=== PATIENT | female | born 1945 | race Caucasian/White ===

== ENCOUNTER 2018-07-31 08:41 | Day surgery (SDC) | payer MEDICARE, OTHER ==
[2018-07-31] MEDS ORDERED: LIDOCAINE 2% MDV (20MG/ML) 20ML VIAL IV ONE (08:42)
[2018-07-31] MEDS ORDERED: PROPOFOL 10 MG/ML VIAL IV ONE (08:42)
--- NOTE | 2018-08-01 07:50 | Operative Note ---
OPERATION: COLONOSCOPY with cold forceps polypectomy. PREOPERATIVE DIAGNOSIS: Family history of colon cancer in sister. POSTOPERATIVE DIAGNOSES: 1. Sigmoid diverticulosis, moderate. 2. Sigmoid colon polyp. 3. Internal hemorrhoids. PROCEDURE: After informed consent was obtained from the patient, she was placed in the left lateral decubitus position in the endoscopy suite, sedated and monitored by the department of anesthesia. Digital rectal exam was unremarkable. A well-lubricated [id number] colonoscope was inserted into the rectum and advanced to the cecum. Preparation quality was good to excellent. The cecum, cecal bulb, ileocecal valve, and appendiceal orifice were visualized several times. The cecum was unremarkable. No polyps or mass lesions were seen. The ileocecal valve appeared unremarkable. The ascending colon, transverse colon, and descending colon were unrevealing as well. The sigmoid colon, however, demonstrated moderate diverticular changes. There was a diminutive polyp, perhaps hyperplastic but nonetheless was removed with a cold forceps without difficulty. Minimal bleeding was noted. The rectum was unremarkable in forward views. J-turn views did reveal moderate-sized internal hemorrhoids. The endoscope was straightened, the rectal ampulla deflated, and the endoscope was removed. RECOMMENDATIONS: I would suggest the patient follow a high-fiber diet, consider a fiber supplement. I would recommend a repeat exam in 5 years should the patient's health allow as well as her desire to continue screening at the age of 78. As always, thank you for allowing me to participate in the healthcare of your patients. CC: DO TK Giraldo
== END 2018-07-31 10:08 | disposition home or self-care (01) ==
LOC: HOP 08:41
PROVIDERS: ATTEND Internal Medicine Gastroenterology
DX: Z12.11 Encounter for screening for malignant neoplasm of colon (principal); D12.5 Benign neoplasm of sigmoid colon; K57.30 Diverticulosis of large intestine without perforation or abscess without bleeding; Z80.0 Family history of malignant neoplasm of digestive organs; I10 Essential (primary) hypertension